=== PATIENT | male | born 1970 | race Caucasian/White ===

== ENCOUNTER 2017-03-17 13:57 | Observation (INO) | payer MEDICARE, OTHER ==
[~2017-03-17] VITALS: Ht 185.4 cm; Wt 87.0 kg
[~2017-03-17 13:57] MED LIST: DIPH28CR5 TP; GABA-826 PO; OLAN20TA7 PO; QUET100T PO
[2017-03-17 14:22] LABS: HEMATOCRIT 44.7 % (39.2-51.8); HEMOGLOBIN 15.3 g/dL (13.7-18.0); WHITE BLOOD COUNT 6.3 x10^3/uL (3.4-10)
[2017-03-17] MEDS ORDERED: IBUPROFEN 200 MG TABLET PO ONE (14:30)
[2017-03-17] MEDS ORDERED: PLEASE ENTER HEIGHT AND WEIGHT MC SCH (14:30)
[2017-03-17 14:44] LABS: ASPARTATE AMINO TRANSFERASE 23 U/L (15-37); BLOOD UREA NITROGEN 8 mg/dL (7-18)
[2017-03-17 14:45] LABS: ACETAMINOPHEN < 2 mcg/mL (10-30)
[2017-03-17] MEDS ORDERED: IBUPROFEN 200 MG TABLET ONE (16:33)
[2017-03-17 19:49] LABS: DAU SCREEN DISCLAIMER
[2017-03-17] MEDS ORDERED: QUETIAPINE 100MG TABLET PO SCH (23:00)
[2017-03-17] MEDS ORDERED: OLANZAPINE 5 MG TABLET PO PRN (23:00)
[2017-03-18] MEDS ORDERED: DIPHENHYDRAMINE/ZINC CRM 2%, 30GM TP PRN (01:00)
[2017-03-18] MEDS ORDERED: NICOTINE 21 MG/24 HR PATCH.TD24 TD SCH (01:00)
[2017-03-18] MEDS ORDERED: BISACODYL 10 MG SUPP PR PRN (01:00)
[2017-03-18] MEDS ORDERED: QUETIAPINE 100MG TABLET PO SCH (01:00)
[2017-03-18] MEDS ORDERED: ONDANSETRON ODT 4 MG PO PRN (01:00)
[2017-03-18] MEDS ORDERED: POLYETHYLENE GLYCOL 17 GM PACKET PO PRN (01:00)
[2017-03-18] MEDS ORDERED: ACETAMINOPHEN 325 MG TABLET PO PRN (01:00)
[2017-03-18 02:25] VITALS: BP 122/82
[2017-03-18 08:07] VITALS: BP 103/69
[2017-03-18] MEDS ORDERED: SENNA/DOCUSATE TABLET PO SCH (09:00)
== END 2017-03-18 10:46 ==
LOC: ED 18:05 → EDIP 22:27 → 3E 03-18 02:18
PROVIDERS: ADMIT Internal Medicine; ATTEND Internal Medicine
DX: R45.851 Suicidal ideations (principal); F10.129 Alcohol abuse with intoxication, unspecified; F12.10 Cannabis abuse, uncomplicated; F14.10 Cocaine abuse, uncomplicated; F17.210 Nicotine dependence, cigarettes, uncomplicated; F25.9 Schizoaffective disorder, unspecified; F32.9 Major depressive disorder, single episode, unspecified; G89.29 Other chronic pain; Z91.14 Patient's other noncompliance with medication regimen; Z91.19 Patient's noncompliance with other medical treatment and regimen; Z91.5 Personal history of self-harm; Z98.1 Arthrodesis status
CPT/HCPCS: 36415; 80053; 80307; 80329; 83735; 84443; 85025; 93005; 99285; G0378; G0479; G0480

== ENCOUNTER 2017-03-27 14:47 | Emergency (ER) | payer MEDICARE, OTHER ==
[~2017-03-27] VITALS: Ht 185.4 cm; Wt 88.2 kg
[2017-03-27 14:49] VITALS: BP 124/81
[2017-03-27] MEDS ORDERED: TRAZ100T15 PO (15:15)
[2017-03-27] MEDS ORDERED: ESCI20TA10 PO (15:15)
[2017-03-27] MEDS ORDERED: GABA600T2 PO (15:15)
[2017-03-27] MEDS ORDERED: QUET300T5 PO (15:15)
[2017-03-27] MEDS ORDERED: DEXAMETHASONE 4 MG TABLET ONE (15:21)
[2017-03-27 15:22] LABS: DAU SCREEN DISCLAIMER
[2017-03-27] MEDS ORDERED: DEXAMETHASONE 4 MG TABLET PO ONE (15:30)
[2017-03-27] MEDS ORDERED: FLUCONAZOLE 100 MG TABLET PO ONE (15:30)
[2017-03-27 15:45] LABS: HEMATOCRIT 41.6 % (39.2-51.8); WHITE BLOOD COUNT 10.8 x10^3/uL (3.4-10)
[2017-03-27 15:58] LABS: ASPARTATE AMINO TRANSFERASE 12 U/L (15-37); BLOOD UREA NITROGEN 22 mg/dL (7-18)
[2017-03-27 16:02] LABS: ACETAMINOPHEN < 2 mcg/mL (10-30)
[2017-03-27] MEDS ORDERED: IBUPROFEN 200 MG TABLET PO ONE (16:30)
[2017-03-27] MEDS ORDERED: IBUPROFEN 200 MG TABLET ONE (16:49)
== END 2017-03-27 17:39 | disposition home or self-care (01) ==
LOC: ED 16:59
DX: F12.10 Cannabis abuse, uncomplicated (principal); B35.3 Tinea pedis; Z72.89 Other problems related to lifestyle; J02.8 Acute pharyngitis due to other specified organisms; F25.9 Schizoaffective disorder, unspecified
CPT/HCPCS: 36415; 80053; 80307; 80329; 85025; 87081; 87147; 87880; 99284; G0479; G0480